=== PATIENT | female | born 1980 | race Caucasian/White ===

== ENCOUNTER → 2022-11-05 10:10 | Outpatient (BNVA) | payer OTHER, SELFPAY | PROVIDERS: PCP Family Medicine; Visit Provider Obstetrics & Gynecology | DX: R87.619 Unspecified abnormal cytological findings in specimens from cervix uteri (principal) | CPT/HCPCS: 88305 ==

== ENCOUNTER 2022-12-20 06:47 | Day surgery (SDC) | payer MEDICAID, SELFPAY ==
--- NOTE | 2022-12-19 20:19 | P.HP_ITS ---
Same Day Surgery H&P Indication for Procedure/HPI DATE OF PROCEDURE: December 20, 2022 CHIEF COMPLAINT/INDICATIONFOR SURGICAL PROCEDURE: cervical ADELIA II PREOP DIAGNOSIS: cervical ADELIA II PLANNED PROCEDURE: Operation Date: 12/20/22 08:00 Proposed Procedures p Cervical conization 62115, N87.1(Not Applicable) - Julio Cesar Meier MD 41 y.o. On DMPA for past 18 years for heavy bleeding Pap done October 04, 2022 at [facility] showed HGSIL Colposcopy with biopsy done November 05, 2022 showed HGSIL, ADELIA II, focal extension down endocervical glands Now scheduled for cold-knife conization of cervix All: penicillins - hives Medications/Allergies* Home Medications Medication Instructions Recorded Confirmed Type No Known Home Medications 11/05/22 12/19/22 History Allergies/Adverse Reactions Allergy/AdvReac Type Severity Reaction Status Date / Time Penicillins Allergy Intermediate ALGY-Hives Verified 11/05/22 09:13 Pertinent History/Comorbid Conditions* Family History (Updated 11/05/22 @ 09:10 by Jhon Gallegos) Hypertension Father Denies family history of Colon cancer Ovarian cancer Diabetes Heart disease Hyperlipidemia Breast cancer Uterine cancer Thyroid disease Stroke Pertinent Exam Findings alert, oriented x 3, clear to auscultation bilaterally and regular rate & rhythm Recommendations Surgery/Procedure today Other Plans: cold-knife conization of cervix on December 20, 2022 Coding Level of Care Code Acute Code for Chg Fwd Diagnoses Time Spent (min) 20
[2022-12-20] VITALS (7 sets, daily range): BP systolic 103–144; BP diastolic 66–112; PULSE 60–114; RESP 16; TEMP 36.2–36.6; O2SAT 96–100
--- NOTE | 2022-12-20 07:08 | W.PM.OPSUD ---
Surgery/Procedure H&P Update DATE OF PROCEDURE: December 20, 2022 DATE H&P PERFORMED: 12/19/22 H&P UPDATE INFORMATION: I have reviewed H&P completed within last 30 days, I have examined patient prior to procedure and Changes to prior documentation as noted here CHANGES TO PREVIOUS DOCUMENTATION: plan electrosurgical loop excision of cervix instead of cold-knife conization of cervix PREOP DIAGNOSIS: cervical ADELIA II PRIMARY INDICATION FOR PROCEDURE: cervical ADELIA II PLANNED PROCEDURE: Operation Date: 12/20/22 08:00 Proposed Procedures p Electrosurgical loop excision of cervix
[2022-12-20 07:21] LABS: OR HCG Qualitative Urine Negative (Negative)
[2022-12-20] MEDS: sodium chloride 0.9% 1,000 ML 30 ML IV (07:30)
--- NOTE | 2022-12-20 07:59 | ANES.PREANE2 ---
Pre-Anesthetic Assessment Height/Weight: Height 1.65 m Weight 53.524 kg Temp Pulse Resp BP Pulse Ox O2 Del Method 97.9 F 114 H 16 143/112 97 Room Air 12/20/22 07:14 12/20/22 07:14 12/20/22 07:14 12/20/22 07:14 12/20/22 07:14 12/20/22 07:15 Preop Diagnosis: cervical dysplasia Operation Date: 12/20/22 08:00 Proposed Procedures p Cervical conization 68030, N87.1(Not Applicable) - Julio Cesar Meier MD Was Beta Efra taken within 24 hours: N/A Was Clonidine taken within 24 hours: N/A Last intake: Intake Last Liquid Date 12/19/22 Last Liquid Time 23:00 Last Solid Date 12/19/22 Last Solid Time 19:00 Social Tobacco Quit smoking 30 days ago Exam alert, oriented x 3, clear to auscultation bilaterally and regular rate & rhythm Airway Submandibular: within normal limits Cervical ROM: within normal limits Mallampati: Class I History/ROS No significant history except as noted and No significant complaints CV/HEM Medical marijuana for hypertension Anesthetic Plan ASA status: 1 Anesthesia: General Risk of > 500 ml blood loss (7ml/kg in children): No Medications/Allergies Home Medications Medication Instructions Recorded Confirmed Last Taken Type No Known Home Medications 11/05/22 12/19/22 Unknown History Allergies Allergy/AdvReac Type Severity Reaction Status Date / Time Penicillins Allergy Intermediate ALGY-Hives Verified 11/05/22 09:13 Current Medications Generic Name Dose Route Start Last Admin Trade Name Bartolo PRN Reason Stop Dose Admin Sodium Chloride 1,000 mls @ 30 mls/hr 12/20/22 07:15 12/20/22 07:30 Sodium Chloride 0.9% IV 12/21/22 07:14 30 mls/hr .Q24H ISIDORO Administration PFSH Anesthesia Family History (Updated 11/05/22 @ 09:11 by Jhon Gallegos) Father Hypertension Denies family history of Colon cancer Ovarian cancer Diabetes Heart disease Hyperlipidemia Breast cancer Uterine cancer Thyroid disease Stroke Data Anesthesia Cardiac Studies: No Data to Display
[2022-12-20] MEDS: vasopressin 20 unit/mL INJ INJECTION (08:23)
--- NOTE | 2022-12-20 08:45 | SUR.OPER ---
Dr. Meier obtained Monsel's from his office that was used during procedure, lot number [id number].
--- NOTE | 2022-12-20 09:10 | PM.OP ---
Operative Report Date of procedure: December 20, 2022 Pre-op diagnosis: cervical ADELIA II Post-op diagnosis: same Procedure done: Electrosurgical loop excision of cervix Implants: none Specimens removed/disposition: cervical excision Surgeon: Julio Cesar Meier MD Anesthesia: General Estimated blood loss (mL): 5 Complications: none Condition: stable Disposition: PACU Brief History: 41 y.o. with cervical ADELIA II Procedure: Informed consent signed The patient was taken to the operating room and placed supine on the table. General anesthesia was induced. The patient was placed in dorsolithotomy position. The patient was prepped and draped in the usual sterile fashion. A bivalve speculum was placed in the vagina. The anterior lip of the cervix was grasped with a single toothed tenaculum. The cervix was then infiltrated at the cervicovaginal junction with 20 U of vasopressin to decrease bleeding. Electrosurgical loop excision of the cervix was done to a depth of approximately 5 mm. There was no bleeding seen. A small amount of Monsel?s solution was placed on the cervical bed. Excellent hemostasis was noted. All instruments were then removed. The patient was placed supine, awakened, and taken to the recovery room. Postoperative condition: stable EBL: 5 cc Complications: none Sponge and instrument counts were correct x two
--- NOTE | 2022-12-20 10:51 | ANE.PACU2 ---
Inpatient post-anesthesia follow up: Airway intact: Yes Vital signs: Temperature 97.2 F Pulse Rate 78 Respiratory Rate 16 Blood Pressure 133/96 Pulse Oximetry 100 Oxygen Delivery Me thod Room Air Oxygen Flow Rate 6 Fraction of Inspir ed Oxygen Hydration adequate: Yes Nausea and vomiting: No Pain level: 2 Mental status: Baseline
== END 2022-12-20 09:42 | disposition home or self-care (01) ==
PROVIDERS: Anesthesiology; PCP Family Medicine; Visit Provider Obstetrics & Gynecology
PROC: 0UBC7ZZ Excision of Cervix, Via Natural or Artificial Opening (ICD-10-PCS; CPT 57522; principal; 2022-12-20 08:00)
DX: N87.1 Moderate cervical dysplasia (principal); I10 Essential (primary) hypertension
CPT/HCPCS: 57460; 81025; 84703; 88307; J1100; J1885; J2250; J2405; J2704; J3010; J3490; J7030